=== PATIENT | female | born 1930 | race Hispanic/Latino ===

== ENCOUNTER 2021-04-20 13:38 | Inpatient (IN) | payer OTHER, MEDICARE ==
[~2021-04-20] VITALS: Ht 154.9 cm; Wt 66.3 kg
[2021-04-20 14:18] LABS: APPEARANCE,URINE Cloudy (CLEAR); BILIRUBIN,URINE Negative (NEGATIVE); COLOR,URINE Yellow (YELLOW); GLUCOSE, URINE (UA) Negative (NEGATIVE); KETONES,URINE Trace mg/dL (NEGATIVE); LEUKOCYTE ESTERASE ,URINE Large (NEGATIVE); NITRATE,URINE Negative (NEGATIVE); OCCULT BLOOD,URINE Small (NEGATIVE); PH,URINE 5.5 (5.0-8.0); PROTEIN,URINE Negative (NEGATIVE); UROBILINOGEN,URINE 0.2 mg/dL (0.2-1.0)
[2021-04-20 14:27] LABS: BASOPHILS % (AUTO) 0.2 % (0.0-5.0); EOSINOPHILS % (AUTO) 0.1 % (0.0-8.0); HEMATOCRIT 41.3 % (36-48); LYMPHOCYTES % (AUTO) 4.6 % (21.0-51.0); MEAN CORPUSCULAR HEMOGLOBIN 30.2 pg (27.0-33.0); MEAN CORPUSCULAR HGB CONC 33.7 g/dL (32.0-36.0); MEAN CORPUSCULAR VOLUME 89.6 fL (79-99); MONOCYTES % (AUTO) 4.9 % (3.0-13.0); NEUTROPHILS % (AUTO) 89.8 % (40.0-77.0); PLATELET COUNT (AUTO) 194 K/uL (130-400); RED BLOOD CELL COUNT(AUTO) 4.61 MIL/uL (4.00-5.50); RED CELL DISTRIBUTION WIDTH 13.4 % (11.0-15.5); WHITE BLOOD COUNT (AUTO) 15.4 K/uL (4.8-10.8)
[2021-04-20 14:33] LABS: BACTERIA,URINE Few /HPF (None Seen); SQUAMOUS EPITHELIAL CELL,UR Moderate /HPF (0-2)
[2021-04-20 14:36] LABS: CREATININE 1.1 mg/dL (0.5-1.5); POTASSIUM 3.2 mmol/L (3.5-5.1)
[2021-04-20 14:41] LABS: ALBUMIN 4.2 g/dL (3.5-5.0); BILIRUBIN,TOTAL 0.7 mg/dL (0.2-1.0); TOTAL PROTEIN, SERUM 7.7 g/dL (6.0-8.3)
[2021-04-20] MEDS ORDERED: PANTOPRAZOLE 40 MG/VIAL IVP SCH (15:00)
[2021-04-20] MEDS ORDERED: MORPHINE 4 MG SYG ONE (15:14)
[2021-04-20] MEDS ORDERED: ONDANSETRON 4MG INJ IVP ONE (15:30)
[2021-04-20] MEDS ORDERED: CEFTRIAXONE 1G VIAL IVP ONE (15:30)
[2021-04-20] MEDS ORDERED: MORPHINE 4 MG SYG IV ONE (16:30)
[2021-04-20] MEDS ORDERED: POTASSIUM CHLORIDE 20MEQ/100ML 100 ML IV PRN (18:00)
[2021-04-20] MEDS ORDERED: LACTULOSE 20 GM/30 ML UDCUP PO PRN (18:00)
[2021-04-20] MEDS: 0.9%NACL 1000ML 1,000 ML IV SCH (18:00)
[2021-04-20] MEDS ORDERED: GLUCAGON 1MG KIT 1 MG ML IM PRN (18:00)
[2021-04-20] MEDS ORDERED: GUAIFENESIN-DM 200/20 MG 10 ML PO PRN (18:00)
[2021-04-20] MEDS ORDERED: DEXTROSE 50%-WATER 50 ML DISP.SYRIN IV PRN (18:00)
[2021-04-20] MEDS ORDERED: NITROGLYCERIN 0.4 MG SL TAB SL PRN (18:00)
[2021-04-20] MEDS ORDERED: ZOLPIDEM TARTRATE 5 MG TAB PO PRN (18:00)
[2021-04-20] MEDS ORDERED: MAG/ALUM/SIMETH 30 ML UDCUP PO PRN (18:00)
[2021-04-20] MEDS ORDERED: MORPHINE 2 MG SYG IVP PRN (19:00)
[2021-04-20] MEDS: ONDANSETRON 4MG INJ IV PRN (20:02)
[2021-04-20] MEDS: METRONIDAZOLE 500 MG TABLET PO SCH (22:04)
[2021-04-20] MEDS ORDERED: LEVOFLOXACIN 500 MG/D5W 100 ML 100 ML IV SCH (22:30)
[2021-04-21] MEDS ORDERED: POTASSIUM CHLORIDE 10MEQ/100ML 10 MEQ/100 ML ML IV STA (04:28)
[2021-04-21] MEDS: 0.9%NACL 1000ML 1,000 ML IV SCH (04:47)
[2021-04-21] MEDS: METRONIDAZOLE 500 MG TABLET PO SCH (04:48)
[2021-04-21 05:27] LABS: HEMATOCRIT 40.1 % (36-48); MEAN CORPUSCULAR HEMOGLOBIN 30.5 pg (27.0-33.0); MEAN CORPUSCULAR HGB CONC 33.9 g/dL (32.0-36.0); MEAN CORPUSCULAR VOLUME 89.9 fL (79-99); RED BLOOD CELL COUNT(AUTO) 4.46 MIL/uL (4.00-5.50); RED CELL DISTRIBUTION WIDTH 13.5 % (11.0-15.5); WHITE BLOOD COUNT (AUTO) 16.5 K/uL (4.8-10.8)
[2021-04-21 05:40] LABS: INR 1.23 (0.85-1.15); PROTHROMBIN TIME 13.2 SEC (9.6-11.6)
[2021-04-21 05:41] LABS: PARTIAL THROMBOPLASTIN TIME 29.1 SEC (26.3-35.5)
[2021-04-21 05:46] LABS: ALBUMIN 3.2 g/dL (3.5-5.0); BILIRUBIN,TOTAL 0.9 mg/dL (0.2-1.0); CREATININE 1.2 mg/dL (0.5-1.5); POTASSIUM 3.7 mmol/L (3.5-5.1); TOTAL PROTEIN, SERUM 6.5 g/dL (6.0-8.3)
[2021-04-21] MEDS: LEVOTHYROXINE 25 MCG TABLET PO SCH (05:53)
[2021-04-21] MEDS: LACTATED RINGERS 1000ML 1,000 ML IV SCH ×3 (05:53→22:42)
[2021-04-21] MEDS ORDERED: CEFTRIAXONE 1G VIAL IV SCH (09:00)
[2021-04-21] MEDS: HYDROCHLOROTHIAZIDE 25 MG TABLET PO SCH ×2 (10:30→21:32)
[2021-04-21] MEDS: GABAPENTIN 100 MG CAPSULE PO SCH ×2 (10:30→21:32)
[2021-04-21] MEDS: FAMOTIDINE 20MG VIAL IV SCH (10:30)
[2021-04-21] MEDS: LISINOPRIL 20 MG TABLET PO SCH ×2 (10:30→21:32)
[2021-04-21] MEDS: ACETAMINOPHEN 325 MG TAB PO PRN ×2 (12:10→18:49)
[2021-04-21] MEDS: METRONIDAZOLE 500MG/100ML BAG 100 ML IVPB SCH ×2 (14:05→21:31)
[2021-04-21] MEDS ORDERED: LORA10TA7 PO (18:38)
[2021-04-21] MEDS ORDERED: LEVO25CA4 PO (18:38)
[2021-04-21] MEDS ORDERED: LISI1TAB49 PO (18:38)
[2021-04-21] MEDS ORDERED: ATOR40TA69 PO (18:38)
[2021-04-21] MEDS ORDERED: GABA-529 PO (18:38)
[2021-04-21 18:51] VITALS: BP 116/48
[2021-04-21] MEDS: ATORVASTATIN 40 MG TABLET PO SCH (21:32)
[2021-04-21] MEDS: LEVOFLOXACIN 250 MG/D5W 50ML 50 ML IVPB SCH (22:41)
[2021-04-21 23:29] VITALS: BP 100/43
[2021-04-22] VITALS (24 sets, daily range): BP systolic 90–127; BP diastolic 41–67
[2021-04-22] MEDS: ACETAMINOPHEN 325 MG TAB PO PRN (03:51)
[2021-04-22] MEDS: METRONIDAZOLE 500MG/100ML BAG 100 ML IVPB SCH ×3 (05:39→22:38)
[2021-04-22] MEDS: LEVOTHYROXINE 25 MCG TABLET PO SCH (05:41)
[2021-04-22 05:43] LABS: BASOPHILS % (AUTO) 0.2 % (0.0-5.0); EOSINOPHILS % (AUTO) 1.6 % (0.0-8.0); LYMPHOCYTES % (AUTO) 5.7 % (21.0-51.0); MEAN CORPUSCULAR HGB CONC 33.4 g/dL (32.0-36.0); MEAN CORPUSCULAR VOLUME 92.6 fL (79-99); NEUTROPHILS % (AUTO) 87.2 % (40.0-77.0); PLATELET COUNT (AUTO) 137 K/uL (130-400); RED BLOOD CELL COUNT(AUTO) 3.78 MIL/uL (4.00-5.50); RED CELL DISTRIBUTION WIDTH 13.9 % (11.0-15.5); WHITE BLOOD COUNT (AUTO) 14.6 K/uL (4.8-10.8)
[2021-04-22 05:57] LABS: INR 1.33 (0.85-1.15); PROTHROMBIN TIME 14.1 SEC (9.6-11.6)
[2021-04-22 05:58] LABS: PARTIAL THROMBOPLASTIN TIME 32.5 SEC (26.3-35.5)
[2021-04-22 06:20] LABS: ALANINE AMINOTRANSFERASE 22 U/L (12-78); ALBUMIN 2.5 g/dL (3.5-5.0); ASPARTATE AMINOTRANSFERASE 21 U/L (10-37); BILIRUBIN,DIRECT 0.3 mg/dL (0.0-0.3); CARBON DIOXIDE 27 mmol/L (21-32); CHLORIDE 102 mmol/L (101-111); CREATININE 1.3 mg/dL (0.5-1.5); GLOMERULAR FILTR. RATE CALC 41 mL/min (>60); GLUCOSE,RANDOM 104 mg/dL (70-105); POTASSIUM 3.1 mmol/L (3.5-5.1); SODIUM SERUM 137 mmol/L (136-145); TOTAL PROTEIN, SERUM 5.6 g/dL (6.0-8.3); UREA NITROGEN, BLOOD 25 mg/dL (7-18)
[2021-04-22 06:33] LABS: LIPASE < 50 U/L (114-286)
[2021-04-22] MEDS: LISINOPRIL 20 MG TABLET PO SCH ×2 (09:00→21:00)
[2021-04-22] MEDS: GABAPENTIN 100 MG CAPSULE PO SCH ×2 (09:00→21:10)
[2021-04-22] MEDS: HYDROCHLOROTHIAZIDE 25 MG TABLET PO SCH ×2 (09:00→21:40)
[2021-04-22] MEDS: FAMOTIDINE 20MG VIAL IV SCH (10:11)
[2021-04-22] MEDS: ONDANSETRON 4MG INJ IV PRN (12:49)
[2021-04-22] MEDS ORDERED: KETOROLAC 30MG VIAL (30MG/ML) IV SCH (13:30)
[2021-04-22] MEDS ORDERED: SUCCINYLCHOLINE CHLORIDE 20 MG/ML 10 ML VIAL ONE (17:40)
[2021-04-22] MEDS ORDERED: ROCURONIUM 10MG/1ML SYR 10 MG/ML ML ONE (17:41)
[2021-04-22] MEDS ORDERED: PROPOFOL 10 MG/ML 20ML VIAL IV ONE (17:41)
[2021-04-22] MEDS ORDERED: MIDAZOLAM HCL 1 MG/ML 2ML VIAL ONE (17:41)
[2021-04-22] MEDS ORDERED: FENTANYL CITRATE PF 50 MCG/1 ML 2ML VIAL ONE (17:42)
[2021-04-22] MEDS ORDERED: LIDOCAINE 1%-EPI 1:100,000 20 ML VIAL IJ ONE (18:06)
[2021-04-22] MEDS ORDERED: BUPIVACAINE/PF 0.25% 30ML VIAL IJ ONE (18:06)
[2021-04-22] MEDS ORDERED: EPHEDRINE SULFATE 50 MG/ML AMPULE ONE (18:09)
[2021-04-22] MEDS ORDERED: GLYCOPYRROLATE 1 MG/5 ML SYRINGE ONE (18:20)
[2021-04-22] MEDS ORDERED: CEFAZOLIN SODIUM 1 GM VIAL ONE (18:25)
[2021-04-22] MEDS ORDERED: NEOSTIGMINE 5MG/5ML SYR IV ONE (18:48)
[2021-04-22] MEDS ORDERED: HYDROMORPHONE 0.5 MG SYG (0.5MG/0.5ML) IVP PRN (21:00)
[2021-04-22] MEDS: LACTATED RINGERS 1000ML 1,000 ML IV SCH (21:00)
[2021-04-22] MEDS: ATORVASTATIN 40 MG TABLET PO SCH (21:09)
[2021-04-22] MEDS: LEVOFLOXACIN 250 MG/D5W 50ML 50 ML IVPB SCH (21:10)
[2021-04-22] MEDS: OXYCODONE/ACETAMIN 5/325MG TAB PO PRN (22:38)
[2021-04-23] VITALS: BP 111/51
[2021-04-23 04:00] VITALS: BP 113/60
[2021-04-23 05:16] LABS: HEMATOCRIT 30.8 % (36-48); MEAN CORPUSCULAR HEMOGLOBIN 30.2 pg (27.0-33.0); MEAN CORPUSCULAR HGB CONC 33.1 g/dL (32.0-36.0); MEAN CORPUSCULAR VOLUME 91.1 fL (79-99); RED BLOOD CELL COUNT(AUTO) 3.38 MIL/uL (4.00-5.50); RED CELL DISTRIBUTION WIDTH 13.9 % (11.0-15.5); WHITE BLOOD COUNT (AUTO) 11.2 K/uL (4.8-10.8)
[2021-04-23 05:40] LABS: ALBUMIN 2.2 g/dL (3.5-5.0); BILIRUBIN,DIRECT 0.2 mg/dL (0.0-0.3); BILIRUBIN,TOTAL 0.6 mg/dL (0.2-1.0); CREATININE 1.1 mg/dL (0.5-1.5); POTASSIUM 3.4 mmol/L (3.5-5.1); TOTAL PROTEIN, SERUM 5.2 g/dL (6.0-8.3)
[2021-04-23] MEDS: LEVOTHYROXINE 25 MCG TABLET PO SCH (05:58)
[2021-04-23] MEDS: METRONIDAZOLE 500MG/100ML BAG 100 ML IVPB SCH ×3 (05:58→21:58)
[2021-04-23] MEDS: KCL 20 MEQ ERTAB PO PRN ×2 (05:58→09:19)
[2021-04-23 07:58] VITALS: BP 97/45
[2021-04-23] MEDS: HYDROCHLOROTHIAZIDE 25 MG TABLET PO SCH ×2 (09:00→20:59)
[2021-04-23] MEDS: LISINOPRIL 20 MG TABLET PO SCH (09:00)
[2021-04-23] MEDS: FAMOTIDINE 20MG VIAL IV SCH (09:16)
[2021-04-23] MEDS: GABAPENTIN 100 MG CAPSULE PO SCH ×2 (09:16→20:58)
[2021-04-23] MEDS: LACTATED RINGERS 1000ML 1,000 ML IV SCH ×2 (09:19→23:40)
[2021-04-23 12:00] VITALS: BP 119/49
[2021-04-23 12:38] LABS: APPEARANCE,URINE CLEAR (CLEAR); BILIRUBIN,URINE NEGATIVE (NEGATIVE); COLOR,URINE YELLOW (YELLOW); GLUCOSE, URINE (UA) NEGATIVE (NEGATIVE); KETONES,URINE 5 mg/dL (NEGATIVE); LEUKOCYTE ESTERASE ,URINE NEGATIVE (NEGATIVE); NITRATE,URINE POSITIVE (NEGATIVE); OCCULT BLOOD,URINE TRACE-INTACT (NEGATIVE); PH,URINE 5.5 (5.0-8.0); PROTEIN,URINE NEGATIVE (NEGATIVE); UROBILINOGEN,URINE 0.2 mg/dL (0.2-1.0)
[2021-04-23 12:50] LABS: BACTERIA,URINE Rare /HPF (None Seen); RBC,URINE 0-1 /HPF (0-1); SQUAMOUS EPITHELIAL CELL,UR Rare /HPF (0-2); WBC,URINE 0-1 /HPF (0-1)
[2021-04-23 16:00] VITALS: BP 121/59
[2021-04-23 20:00] VITALS: BP 118/46
[2021-04-23] MEDS: LEVOFLOXACIN 250 MG/D5W 50ML 50 ML IVPB SCH (20:58)
[2021-04-23] MEDS: ATORVASTATIN 40 MG TABLET PO SCH (20:58)
[2021-04-23] MEDS: OXYCODONE/ACETAMIN 5/325MG TAB PO PRN (21:04)
[2021-04-24] VITALS: BP 112/50
[2021-04-24] MEDS: OXYCODONE/ACETAMIN 5/325MG TAB PO PRN ×2 (02:58→17:03)
[2021-04-24 04:00] VITALS: BP 122/53
[2021-04-24] MEDS: LACTATED RINGERS 1000ML 1,000 ML IV SCH (04:35)
[2021-04-24] MEDS: METRONIDAZOLE 500MG/100ML BAG 100 ML IVPB SCH ×3 (04:37→22:00)
[2021-04-24] MEDS: LEVOTHYROXINE 25 MCG TABLET PO SCH (04:58)
[2021-04-24 05:28] LABS: BASOPHILS % (AUTO) 0.3 % (0.0-5.0); EOSINOPHILS % (AUTO) 5.9 % (0.0-8.0); LYMPHOCYTES % (AUTO) 8.9 % (21.0-51.0); MEAN CORPUSCULAR HEMOGLOBIN 30.7 pg (27.0-33.0); MEAN CORPUSCULAR HGB CONC 33.3 g/dL (32.0-36.0); MONOCYTES % (AUTO) 8.6 % (3.0-13.0); NEUTROPHILS % (AUTO) 75.7 % (40.0-77.0); PLATELET COUNT (AUTO) 116 K/uL (130-400); RED BLOOD CELL COUNT(AUTO) 3.26 MIL/uL (4.00-5.50); RED CELL DISTRIBUTION WIDTH 13.8 % (11.0-15.5); WHITE BLOOD COUNT (AUTO) 10.9 K/uL (4.8-10.8)
[2021-04-24 05:47] LABS: ALBUMIN 2.1 g/dL (3.5-5.0); BILIRUBIN,TOTAL 0.6 mg/dL (0.2-1.0); CREATININE 1.1 mg/dL (0.5-1.5); POTASSIUM 3.4 mmol/L (3.5-5.1); TOTAL PROTEIN, SERUM 5.1 g/dL (6.0-8.3)
[2021-04-24] MEDS: KCL 20 MEQ ERTAB PO PRN ×2 (06:54→09:41)
[2021-04-24 08:00] VITALS: BP 96/44
[2021-04-24] MEDS: HYDROCHLOROTHIAZIDE 25 MG TABLET PO SCH ×2 (09:00→21:00)
[2021-04-24] MEDS: TAMSULOSIN HCL 0.4 MG CAP.ER.24H PO SCH (09:41)
[2021-04-24] MEDS: FAMOTIDINE 20MG VIAL IV SCH (09:41)
[2021-04-24] MEDS: GABAPENTIN 100 MG CAPSULE PO SCH ×2 (09:41→22:03)
[2021-04-24] MEDS: ACETAMINOPHEN 325 MG TAB PO PRN (10:05)
[2021-04-24 11:40] VITALS: BP 107/41
[2021-04-24] MEDS ORDERED: PHARMACY COMMUNICATION MISC SCH (13:00)
[2021-04-24] MEDS ORDERED: COMPOUND IV MISC 1 EACH IVSOLN MISC PRN (14:00)
[2021-04-24] MEDS ORDERED: FLUCONAZOLE 100 MG/50 ML IV SCH (14:00)
[2021-04-24 16:00] VITALS: BP 130/55
[2021-04-24] MEDS: NYSTATIN 100000 UNIT/ML 5ML UDCUP PO SCH ×2 (16:48→22:03)
[2021-04-24] MEDS: FLUCONAZOLE 200 MG/NS 100 ML 50 ML IV SCH (17:03)
[2021-04-24 20:00] VITALS: BP 119/54
[2021-04-24] MEDS: ATORVASTATIN 40 MG TABLET PO SCH (22:03)
[2021-04-24] MEDS: LEVOFLOXACIN 250 MG/D5W 50ML 50 ML IVPB SCH (22:04)
[2021-04-25] VITALS (7 sets, daily range): BP systolic 123–154; BP diastolic 43–66
[2021-04-25] MEDS: OXYCODONE/ACETAMIN 5/325MG TAB PO PRN ×2 (00:05→10:13)
[2021-04-25] MEDS: LACTATED RINGERS 1000ML 1,000 ML IV SCH ×2 (00:07→13:44)
[2021-04-25] MEDS: METRONIDAZOLE 500MG/100ML BAG 100 ML IVPB SCH (05:28)
[2021-04-25] MEDS: LEVOTHYROXINE 25 MCG TABLET PO SCH (05:28)
[2021-04-25] MEDS: TAMSULOSIN HCL 0.4 MG CAP.ER.24H PO SCH (10:20)
[2021-04-25] MEDS: NYSTATIN 100000 UNIT/ML 5ML UDCUP PO SCH ×3 (10:20→20:54)
[2021-04-25] MEDS: FAMOTIDINE 20MG VIAL IV SCH (10:20)
[2021-04-25] MEDS: GABAPENTIN 100 MG CAPSULE PO SCH ×2 (10:20→20:55)
[2021-04-25] MEDS: HYDROCHLOROTHIAZIDE 25 MG TABLET PO SCH ×2 (10:20→20:55)
[2021-04-25] MEDS ORDERED: MEROPENEM 500 MG VIAL IVP SCH ×2 (12:00)
[2021-04-25] MEDS ORDERED: DIATR MEGLU/DIATRIZOATE SODIUM 30 ML BOTTLE ONE (13:14)
[2021-04-25] MEDS ORDERED: METRONIDAZOLE 500 MG TABLET PO SCH (14:00)
[2021-04-25] MEDS: FLUCONAZOLE 200 MG/NS 100 ML 50 ML IV SCH (17:01)
[2021-04-25] MEDS: MEROPENEM 500 MG VIAL IVP SCH (20:54)
[2021-04-25] MEDS: ATORVASTATIN 40 MG TABLET PO SCH (20:55)
[2021-04-26 03:48] VITALS: BP 157/52
[2021-04-26] MEDS: LACTATED RINGERS 1000ML 1,000 ML IV SCH ×2 (05:04→18:20)
[2021-04-26] MEDS: LEVOTHYROXINE 25 MCG TABLET PO SCH (05:04)
[2021-04-26 05:28] LABS: HEMATOCRIT 33.6 % (36-48); MEAN CORPUSCULAR HEMOGLOBIN 30.5 pg (27.0-33.0); MEAN CORPUSCULAR HGB CONC 33.3 g/dL (32.0-36.0); MEAN CORPUSCULAR VOLUME 91.6 fL (79-99); RED BLOOD CELL COUNT(AUTO) 3.67 MIL/uL (4.00-5.50); RED CELL DISTRIBUTION WIDTH 13.3 % (11.0-15.5); WHITE BLOOD COUNT (AUTO) 10.3 K/uL (4.8-10.8)
[2021-04-26 05:43] LABS: ALBUMIN 2.2 g/dL (3.5-5.0); BILIRUBIN,TOTAL 0.6 mg/dL (0.2-1.0); CREATININE 0.8 mg/dL (0.5-1.5); POTASSIUM 3.8 mmol/L (3.5-5.1); TOTAL PROTEIN, SERUM 5.3 g/dL (6.0-8.3)
[2021-04-26 09:42] VITALS: BP 157/67
[2021-04-26] MEDS: TAMSULOSIN HCL 0.4 MG CAP.ER.24H PO SCH (09:51)
[2021-04-26] MEDS: MEROPENEM 500 MG VIAL IVP SCH ×2 (09:51→20:06)
[2021-04-26] MEDS: FAMOTIDINE 20MG VIAL IV SCH (09:51)
[2021-04-26] MEDS: HYDROCHLOROTHIAZIDE 25 MG TABLET PO SCH ×2 (09:51→20:07)
[2021-04-26] MEDS: GABAPENTIN 100 MG CAPSULE PO SCH ×2 (09:51→20:06)
[2021-04-26] MEDS: NYSTATIN 100000 UNIT/ML 5ML UDCUP PO SCH ×3 (09:51→20:06)
[2021-04-26] MEDS: OXYCODONE/ACETAMIN 5/325MG TAB PO PRN ×2 (10:47→23:18)
[2021-04-26 11:15] VITALS: BP 150/59
[2021-04-26 15:25] VITALS: BP 139/97
[2021-04-26] MEDS: FLUCONAZOLE 200 MG/NS 100 ML 50 ML IV SCH (17:44)
[2021-04-26 19:58] VITALS: BP 130/60
[2021-04-26] MEDS: ATORVASTATIN 40 MG TABLET PO SCH (20:07)
[2021-04-26 23:23] VITALS: BP 122/58
[2021-04-27 03:46] VITALS: BP 138/59
[2021-04-27 04:52] LABS: BASOPHILS % (AUTO) 0.4 % (0.0-5.0); EOSINOPHILS % (AUTO) 1.9 % (0.0-8.0); HEMATOCRIT 33.4 % (36-48); LYMPHOCYTES % (AUTO) 12.6 % (21.0-51.0); MEAN CORPUSCULAR HEMOGLOBIN 30.3 pg (27.0-33.0); MEAN CORPUSCULAR HGB CONC 33.5 g/dL (32.0-36.0); MEAN CORPUSCULAR VOLUME 90.3 fL (79-99); NEUTROPHILS % (AUTO) 72.2 % (40.0-77.0); PLATELET COUNT (AUTO) 214 K/uL (130-400); RED CELL DISTRIBUTION WIDTH 13.2 % (11.0-15.5); WHITE BLOOD COUNT (AUTO) 11.4 K/uL (4.8-10.8)
[2021-04-27] MEDS: LACTATED RINGERS 1000ML 1,000 ML IV SCH ×2 (05:42→20:47)
[2021-04-27] MEDS: MAGNESIUM 2GM PREMIX 50ML 50 ML IV PRN (05:42)
[2021-04-27] MEDS: LEVOTHYROXINE 25 MCG TABLET PO SCH (05:42)
[2021-04-27 08:00] VITALS: BP 120/56
[2021-04-27] MEDS ORDERED: MAGNESIUM 2GM PREMIX 50ML 50 ML IV PRN (08:00)
[2021-04-27 08:27] LABS: ALBUMIN 2.1 g/dL (3.5-5.0); BILIRUBIN,TOTAL 0.5 mg/dL (0.2-1.0); CREATININE 0.9 mg/dL (0.5-1.5); POTASSIUM 3.4 mmol/L (3.5-5.1); TOTAL PROTEIN, SERUM 5.1 g/dL (6.0-8.3)
[2021-04-27] MEDS: NYSTATIN 100000 UNIT/ML 5ML UDCUP PO SCH ×3 (09:41→20:13)
[2021-04-27] MEDS: TAMSULOSIN HCL 0.4 MG CAP.ER.24H PO SCH (09:41)
[2021-04-27] MEDS: MEROPENEM 500 MG VIAL IVP SCH ×2 (09:41→20:12)
[2021-04-27] MEDS: FAMOTIDINE 20MG VIAL IV SCH (09:41)
[2021-04-27] MEDS: GABAPENTIN 100 MG CAPSULE PO SCH ×2 (09:41→20:13)
[2021-04-27] MEDS: HYDROCHLOROTHIAZIDE 25 MG TABLET PO SCH ×2 (09:42→20:13)
[2021-04-27 12:00] VITALS: BP 146/67
[2021-04-27 16:00] VITALS: BP 149/66
[2021-04-27] MEDS: FLUCONAZOLE 200 MG/NS 100 ML 50 ML IV SCH (17:16)
[2021-04-27 20:00] VITALS: BP 159/62
[2021-04-27] MEDS: ATORVASTATIN 40 MG TABLET PO SCH (20:13)
[2021-04-27] MEDS: OXYCODONE/ACETAMIN 5/325MG TAB PO PRN (20:14)
[2021-04-28] VITALS: BP 141/60
[2021-04-28 04:00] VITALS: BP 134/62
[2021-04-28 05:39] LABS: HEMATOCRIT 33.3 % (36-48); MEAN CORPUSCULAR HEMOGLOBIN 30.1 pg (27.0-33.0); MEAN CORPUSCULAR HGB CONC 34.2 g/dL (32.0-36.0); MEAN CORPUSCULAR VOLUME 87.9 fL (79-99); RED BLOOD CELL COUNT(AUTO) 3.79 MIL/uL (4.00-5.50); RED CELL DISTRIBUTION WIDTH 13.3 % (11.0-15.5)
[2021-04-28 06:03] LABS: ALBUMIN 2.3 g/dL (3.5-5.0); BILIRUBIN,TOTAL 0.6 mg/dL (0.2-1.0); CREATININE 0.9 mg/dL (0.5-1.5); MAGNESIUM 1.4 mg/dL (1.80-2.40); POTASSIUM 3.3 mmol/L (3.5-5.1); TOTAL PROTEIN, SERUM 5.6 g/dL (6.0-8.3)
[2021-04-28] MEDS: LEVOTHYROXINE 25 MCG TABLET PO SCH (06:32)
[2021-04-28] MEDS: POTASSIUM CHLORIDE 10% ELIXIR 20 MEQ/15 ML UDCUP PO PRN (06:33)
[2021-04-28 08:00] VITALS: BP 155/71
[2021-04-28] MEDS: FAMOTIDINE 20MG VIAL IV SCH (08:24)
[2021-04-28] MEDS: NYSTATIN 100000 UNIT/ML 5ML UDCUP PO SCH ×3 (08:24→20:36)
[2021-04-28] MEDS: GABAPENTIN 100 MG CAPSULE PO SCH ×2 (08:24→20:36)
[2021-04-28] MEDS: MEROPENEM 500 MG VIAL IVP SCH ×2 (08:24→20:36)
[2021-04-28] MEDS: TAMSULOSIN HCL 0.4 MG CAP.ER.24H PO SCH (08:25)
[2021-04-28] MEDS: HYDROCHLOROTHIAZIDE 25 MG TABLET PO SCH ×2 (08:25→20:36)
[2021-04-28] MEDS: LACTATED RINGERS 1000ML 1,000 ML IV SCH (10:20)
[2021-04-28 12:00] VITALS: BP 145/71
[2021-04-28] MEDS: ACETAMINOPHEN 325 MG TAB PO PRN ×2 (12:42→20:37)
[2021-04-28 16:00] VITALS: BP 119/64
[2021-04-28] MEDS: FLUCONAZOLE 200 MG/NS 100 ML 50 ML IV SCH (18:12)
[2021-04-28 19:00] VITALS: BP 162/66
[2021-04-28] MEDS: ATORVASTATIN 40 MG TABLET PO SCH (20:36)
[2021-04-29] VITALS: BP 131/59
[2021-04-29 04:00] VITALS: BP 148/60
[2021-04-29 04:23] LABS: HEMATOCRIT 35.3 % (36-48); MEAN CORPUSCULAR HEMOGLOBIN 30.3 pg (27.0-33.0); MEAN CORPUSCULAR HGB CONC 33.4 g/dL (32.0-36.0); MEAN CORPUSCULAR VOLUME 90.5 fL (79-99); RED BLOOD CELL COUNT(AUTO) 3.9 MIL/uL (4.00-5.50); RED CELL DISTRIBUTION WIDTH 13.5 % (11.0-15.5); WHITE BLOOD COUNT (AUTO) 10.6 K/uL (4.8-10.8)
[2021-04-29 04:50] LABS: ALBUMIN 2.4 g/dL (3.5-5.0); BILIRUBIN,TOTAL 0.6 mg/dL (0.2-1.0); CREATININE 0.8 mg/dL (0.5-1.5); MAGNESIUM 1.7 mg/dL (1.80-2.40); POTASSIUM 3.7 mmol/L (3.5-5.1); TOTAL PROTEIN, SERUM 5.8 g/dL (6.0-8.3)
[2021-04-29] MEDS: LEVOTHYROXINE 25 MCG TABLET PO SCH (06:20)
[2021-04-29] MEDS: POTASSIUM CHLORIDE 10% ELIXIR 20 MEQ/15 ML UDCUP PO PRN ×2 (06:21→09:37)
[2021-04-29 07:10] VITALS: BP 135/64
[2021-04-29] MEDS: NYSTATIN 100000 UNIT/ML 5ML UDCUP PO SCH (09:36)
[2021-04-29] MEDS: MEROPENEM 500 MG VIAL IVP SCH (09:37)
[2021-04-29] MEDS: TAMSULOSIN HCL 0.4 MG CAP.ER.24H PO SCH (09:37)
[2021-04-29] MEDS: GABAPENTIN 100 MG CAPSULE PO SCH (09:37)
[2021-04-29] MEDS: HYDROCHLOROTHIAZIDE 25 MG TABLET PO SCH (09:37)
[2021-04-29] MEDS: FAMOTIDINE 20MG VIAL IV SCH (09:37)
[2021-04-29] MEDS: ACETAMINOPHEN 325 MG TAB PO PRN ×2 (09:38→15:51)
[2021-04-29] MEDS: MAGNESIUM 2GM PREMIX 50ML 50 ML IV PRN (09:39)
[2021-04-29 11:15] VITALS: BP 101/53
== END 2021-04-29 17:15 | DRG 418 ==
LOC: EDH 13:38 → EDHIP 17:50 → OBSVTOIN 17:50 → 3AH 04-21 18:30
PROVIDERS: ADMIT Internal Medicine Critical Care Medicine; ATTEND Internal Medicine Critical Care Medicine
PROC: 0FT44ZZ Resection of Gallbladder, Percutaneous Endoscopic Approach (ICD-10-PCS; principal; 2021-04-22 18:11)
DX: K80.00 Calculus of gallbladder with acute cholecystitis without obstruction (principal); N39.0 Urinary tract infection, site not specified; E86.0 Dehydration; I10 Essential (primary) hypertension; K82.A1 Gangrene of gallbladder in cholecystitis; R00.1 Bradycardia, unspecified; K29.70 Gastritis, unspecified, without bleeding; E78.00 Pure hypercholesterolemia, unspecified; K82.8 Other specified diseases of gallbladder; Z20.822 Contact with and (suspected) exposure to COVID-19; K59.00 Constipation, unspecified; E87.6 Hypokalemia; E78.5 Hyperlipidemia, unspecified; E83.42 Hypomagnesemia; K66.0 Peritoneal adhesions (postprocedural) (postinfection); Z88.0 Allergy status to penicillin; Z79.890 Hormone replacement therapy; Z79.899 Other long term (current) drug therapy; Z87.11 Personal history of peptic ulcer disease
CPT/HCPCS: 36415; 71045; 74176; 80048; 80053; 80076; 81001; 82150; 82948; 83690; 83735; 84145; 85025; 85027; 85610; 85730; 87088; 87635; 88304; 93005; 97039; C9113; G0378; J0330; J0690; J0696; J1450; J1885; J1956; J2185; J2250; J2270; J2405; J2704; J2710; J3010; J3475; J3490; J7030; J7120; Q9963

== ENCOUNTER 2022-07-24 13:12 | Observation (INO) | payer OTHER, MEDICARE ==
[~2022-07-24] VITALS: Ht 152.4 cm; Wt 67.9 kg
[~2022-07-24 13:12] MED LIST: ATOR40TA69 PO; GABA-529 PO; LEVO25CA4 PO; LISI1TAB49 PO; LORA10TA7 PO
[2022-07-24 13:49] LABS: BASOPHILS % (AUTO) 0.6 % (0.0-5.0); EOSINOPHILS % (AUTO) 0.9 % (0.0-8.0); HEMATOCRIT 43.1 % (36-48); MEAN CORPUSCULAR HEMOGLOBIN 30.8 pg (27.0-33.0); MEAN CORPUSCULAR HGB CONC 33.2 g/dL (32.0-36.0); MEAN CORPUSCULAR VOLUME 92.7 fL (79-99); MONOCYTES % (AUTO) 5.6 % (3.0-13.0); NEUTROPHILS % (AUTO) 75.6 % (40.0-77.0); PLATELET COUNT (AUTO) 207 K/uL (130-400); RED BLOOD CELL COUNT(AUTO) 4.65 MIL/uL (4.00-5.50); RED CELL DISTRIBUTION WIDTH 13.4 % (11.0-15.5); WHITE BLOOD COUNT (AUTO) 8.7 K/uL (4.8-10.8)
[2022-07-24 14:01] LABS: CREATININE 0.9 mg/dL (0.5-1.5); POTASSIUM 3.8 mmol/L (3.5-5.1)
[2022-07-24 14:10] LABS: TOTAL PROTEIN, SERUM 7.1 g/dL (6.0-8.3)
[2022-07-24 15:56] LABS: APPEARANCE,URINE CLOUDY (CLEAR); BACTERIA,URINE RARE /HPF (None Seen); BILIRUBIN,URINE NEGATIVE (NEGATIVE); COLOR,URINE LIGHT-YELLOW (YELLOW); GLUCOSE, URINE (UA) NEGATIVE (NEGATIVE); KETONES,URINE NEGATIVE (NEGATIVE); LEUKOCYTE ESTERASE ,URINE 500 Leu/uL (NEGATIVE); MUCUS,URINE RARE LPF (None Seen); NITRATE,URINE 2+ (NEGATIVE); OCCULT BLOOD,URINE NEGATIVE (NEGATIVE); PH,URINE 6.5 (5.0-8.0); PROTEIN,URINE NEGATIVE (NEGATIVE); SQUAMOUS EPITHELIAL CELL,UR RARE /HPF (0-2); UROBILINOGEN,URINE 0.2 mg/dL (0.2-1.0); WBC,URINE 26-50 /HPF (0-1)
[2022-07-24] MEDS ORDERED: 0.9%NACL 1000ML 1,000 ML IV ONE (16:30)
[2022-07-24] MEDS ORDERED: ASPIRIN 325MG TAB PO STA (19:14)
[2022-07-24] MEDS ORDERED: POTASSIUM CHLORIDE 10% ELIXIR 20 MEQ/15 ML UDCUP PO PRN (19:30)
[2022-07-24] MEDS ORDERED: POTASSIUM CHLORIDE 20MEQ/100ML 100 ML IV PRN (19:30)
[2022-07-24] MEDS ORDERED: LEVOFLOXACIN 500 MG/D5W 100 ML 100 ML IV SCH (19:30)
[2022-07-24] MEDS ORDERED: GLUCAGON 1MG KIT 1 MG ML IM PRN (19:30)
[2022-07-24] MEDS ORDERED: DEXTROSE 50%-WATER 50 ML DISP.SYRIN IV PRN (19:30)
[2022-07-24] MEDS ORDERED: MAGNESIUM 2GM PREMIX 50ML 50 ML IV PRN (19:30)
[2022-07-24] MEDS ORDERED: LIDOCAINE HCL-MPF 1% 2ML VIAL IV PRN (19:30)
[2022-07-24] MEDS: LACTATED RINGERS 1000ML 1,000 ML IV SCH (19:49)
[2022-07-24] MEDS ORDERED: HYDRALAZINE 20MG/ML VIAL IV PRN (20:00)
[2022-07-24] MEDS ORDERED: TEMAZEPAM 15 MG CAPSULE PO PRN (20:00)
[2022-07-24] MEDS ORDERED: CLONIDINE HCL 0.1 MG TABLET PO PRN (20:00)
[2022-07-24] MEDS ORDERED: LACTULOSE 20 GM/30 ML UDCUP PO PRN (20:00)
[2022-07-24] MEDS ORDERED: ACETAMINOPHEN 325 MG TAB PO PRN (20:00)
[2022-07-24] MEDS ORDERED: LABETALOL 20MG SYG IV PRN (20:00)
[2022-07-24] MEDS ORDERED: ONDANSETRON 4MG INJ IVP PRN (20:00)
[2022-07-24] MEDS ORDERED: ACETAMINOPHEN 650 MG SUPPOSITORY RC PRN (20:00)
[2022-07-24] MEDS ORDERED: DOCUSATE SODIUM 100 MG CAP PO PRN (20:00)
[2022-07-24] MEDS: INSULIN HUMULIN R 100 UNIT/ML 3ML SQ SCH (21:00)
[2022-07-24] MEDS: ATORVASTATIN 40 MG TABLET PO SCH (21:40)
[2022-07-24 22:50] VITALS: BP 184/78
[2022-07-24] MEDS ORDERED: LISI1TAB51 PO (23:19)
[2022-07-24] MEDS ORDERED: MULT-248 PO (23:19)
[2022-07-24] MEDS ORDERED: ASPI-1197 PO (23:19)
[2022-07-24 23:37] VITALS: BP 126/68
[2022-07-25] VITALS (10 sets, daily range): BP systolic 138–192; BP diastolic 59–99
[2022-07-25 05:35] LABS: BASOPHILS % (AUTO) 0.5 % (0.0-5.0); EOSINOPHILS % (AUTO) 1.6 % (0.0-8.0); HEMATOCRIT 39.9 % (36-48); LYMPHOCYTES % (AUTO) 17.2 % (21.0-51.0); MEAN CORPUSCULAR HEMOGLOBIN 30.4 pg (27.0-33.0); MEAN CORPUSCULAR HGB CONC 32.6 g/dL (32.0-36.0); MEAN CORPUSCULAR VOLUME 93.2 fL (79-99); MONOCYTES % (AUTO) 8.9 % (3.0-13.0); NEUTROPHILS % (AUTO) 71.5 % (40.0-77.0); PLATELET COUNT (AUTO) 194 K/uL (130-400); RED BLOOD CELL COUNT(AUTO) 4.28 MIL/uL (4.00-5.50); RED CELL DISTRIBUTION WIDTH 13.3 % (11.0-15.5); WHITE BLOOD COUNT (AUTO) 9.5 K/uL (4.8-10.8)
[2022-07-25] MEDS: LEVOTHYROXINE 25 MCG TABLET PO SCH (05:36)
[2022-07-25] MEDS: INSULIN HUMULIN R 100 UNIT/ML 3ML SQ SCH ×4 (05:38→21:00)
[2022-07-25 05:58] LABS: HEMOGLOBIN A1C 6.2 % (4.0-6.0)
[2022-07-25 06:00] LABS: CREATININE 0.9 mg/dL (0.5-1.5); MAGNESIUM 2.3 mg/dL (1.80-2.40); PHOSPHORUS 2.4 mg/dL (2.5-4.9); POTASSIUM 3.4 mmol/L (3.5-5.1); THYROID STIMULATING HORMONE 3.25 uIU/mL (0.36-3.74)
[2022-07-25] MEDS: KCL 20 MEQ ERTAB PO PRN (06:28)
[2022-07-25] MEDS: ASPIRIN 81MG CHEW TAB PO SCH ×2 (09:00→09:53)
[2022-07-25] MEDS: MULTIVITAMIN WITH MINERALS TABLET PO SCH (09:52)
[2022-07-25] MEDS: GABAPENTIN 100 MG CAPSULE PO SCH ×2 (09:52→19:40)
[2022-07-25] MEDS: LISINOPRIL 20 MG TABLET PO SCH ×2 (09:53→19:39)
[2022-07-25] MEDS: HYDROCHLOROTHIAZIDE 25 MG TABLET PO SCH ×2 (09:53→19:40)
[2022-07-25] MEDS: ENOXAPARIN SODIUM 40 MG/0.4 ML SYRINGE SQ SCH (09:54)
[2022-07-25] MEDS: LACTATED RINGERS 1000ML 1,000 ML IV SCH (16:02)
[2022-07-25] MEDS: LEVOFLOXACIN 250 MG/D5W 50ML 50 ML IVPB SCH (16:02)
[2022-07-25] MEDS: ATORVASTATIN 40 MG TABLET PO SCH (19:40)
[2022-07-25] MEDS ORDERED: ATORVASTATIN 40 MG TABLET PO SCH (21:00)
[2022-07-26] VITALS (7 sets, daily range): BP systolic 133–169; BP diastolic 64–76
[2022-07-26] MEDS: LACTATED RINGERS 1000ML 1,000 ML IV SCH (02:37)
[2022-07-26 04:43] LABS: CREATININE 0.9 mg/dL (0.5-1.5); POTASSIUM 3.5 mmol/L (3.5-5.1)
[2022-07-26] MEDS: LEVOTHYROXINE 25 MCG TABLET PO SCH (05:19)
[2022-07-26] MEDS: KCL 20 MEQ ERTAB PO PRN ×2 (05:19→11:52)
[2022-07-26] MEDS: INSULIN HUMULIN R 100 UNIT/ML 3ML SQ SCH ×3 (05:46→16:30)
[2022-07-26] MEDS: ASPIRIN 81MG CHEW TAB PO SCH ×2 (07:35→08:36)
[2022-07-26] MEDS: HYDROCHLOROTHIAZIDE 25 MG TABLET PO SCH (08:35)
[2022-07-26] MEDS: ENOXAPARIN SODIUM 40 MG/0.4 ML SYRINGE SQ SCH (08:35)
[2022-07-26] MEDS: GABAPENTIN 100 MG CAPSULE PO SCH (08:36)
[2022-07-26] MEDS: LISINOPRIL 20 MG TABLET PO SCH (08:36)
[2022-07-26] MEDS: MULTIVITAMIN WITH MINERALS TABLET PO SCH (08:36)
[2022-07-26] MEDS ORDERED: LEVO250T75 PO (15:01)
[2022-07-26] MEDS: LEVOFLOXACIN 250 MG/D5W 50ML 50 ML IVPB SCH (17:02)
== END 2022-07-26 18:40 | disposition home or self-care (01) ==
LOC: EDH 13:12 → EDHIP 18:54 → 4BH 22:45
PROVIDERS: ADMIT Internal Medicine Pulmonary Disease; ATTEND Internal Medicine Pulmonary Disease
DX: R42 Dizziness and giddiness (principal); Z20.822 Contact with and (suspected) exposure to COVID-19; I12.9 Hypertensive chronic kidney disease with stage 1 through stage 4 chronic kidney disease, or unspecified chronic kidney disease; N18.2 Chronic kidney disease, stage 2 (mild); N39.0 Urinary tract infection, site not specified; R74.8 Abnormal levels of other serum enzymes; E86.0 Dehydration; E78.00 Pure hypercholesterolemia, unspecified; I99.9 Unspecified disorder of circulatory system; E03.9 Hypothyroidism, unspecified; M19.90 Unspecified osteoarthritis, unspecified site; K29.70 Gastritis, unspecified, without bleeding; R55 Syncope and collapse; I24.9 Acute ischemic heart disease, unspecified; I49.1 Atrial premature depolarization; Z87.11 Personal history of peptic ulcer disease; Z79.899 Other long term (current) drug therapy; Z98.890 Other specified postprocedural states; Z90.710 Acquired absence of both cervix and uterus; Z90.49 Acquired absence of other specified parts of digestive tract
CPT/HCPCS: 96361 ×2; 96365; 96366 ×3; 96375; 99285; 83735 ×2; 84484 ×4; 80053; 85025 ×2; 87077; 87088; 87186; 87804 ×2; 82948 ×8; 81001; 36415 ×3; 87635; 70450; 93880; 93005 ×3; 96372 ×2; 83036; 84443; 84100; 80048 ×2; 83880; 93306; 93356; G0378 ×47; J3475; J7120; J1956 ×3; J7030; J1650 ×2

== ENCOUNTER → 2022-11-08 | Outpatient (CLI) | payer OTHER, MEDICARE ==
[~2022-11-08] MED LIST changes: +ASPI-1197 PO; +LEVO250T75 PO; -LISI1TAB49 PO; +LISI1TAB51 PO; -LORA10TA7 PO; +MULT-248 PO
== END | disposition home or self-care (01) ==
LOC: RAH 08:56
PROVIDERS: ATTEND Family Medicine
DX: K76.0 Fatty (change of) liver, not elsewhere classified (principal); R10.11 Right upper quadrant pain; N28.1 Cyst of kidney, acquired; Z90.49 Acquired absence of other specified parts of digestive tract
CPT/HCPCS: 76700